=== PATIENT | male | born 1945 | race Caucasian/White ===

== ENCOUNTER 2018-01-27 18:35 | Inpatient (IN) | payer MEDICARE, BC ==
[~2018-01-27] VITALS: Ht 172.7 cm; Wt 70.0 kg
[~2018-01-27 18:35] MED LIST: ACET325T14 PO; BISA10SU65 PR; DOCU-131 PO; ENOX40SY4 SQ; LORA-446; ONDA4TAB13 PO; PANT40TA5 PO
[2018-01-27] MEDS ORDERED: ATENOLOL (18:51)
[2018-01-27] MEDS ORDERED: METOPROLOL 1 MG/ML, 5ML ONE ×3 (18:55→19:16)
[2018-01-27] MEDS: METOPROLOL 1 MG/ML, 5ML IVPush PRN ×3 (19:00→19:19)
[2018-01-27] MEDS ORDERED: SODIUM CHLORIDE 0.9% 1,000ML IVBOLUS ONE (19:00)
[2018-01-27 19:09] LABS: BASOPHILS # (AUTO) 0.06 x10^3/uL (0-0.1); BASOPHILS % (AUTO) 1 % (0-1); EOSINOPHILS # (AUTO) 0.04 x10^3/uL (0-0.4); EOSINOPHILS % (AUTO) 1 % (1-7); LYMPHOCYTES % (AUTO) 18 % (22-44); MD NO; MEAN CORPUSCULAR HEMOGLOBIN 35.9 pg (27.5-34.5); MEAN CORPUSCULAR HGB CONC 34.1 g/dL (33.2-36.2); MEAN CORPUSCULAR VOLUME 105.1 fL (81-97); MEAN PLATELET VOLUME 7.5 fL (7.4-10.4); MONOCYTES # (AUTO) 0.54 x10^3/uL (0.2-0.8); MONOCYTES % (AUTO) 9 % (2-9); NEUTROPHILS # (AUTO) 4.45 x10^3/uL (1.8-6.8); NEUTROPHILS % (AUTO) 72 % (42-75); PLATELET COUNT 327 x10^3/uL (130-400); RED BLOOD COUNT 4.29 x10^6/uL (4.38-5.82); RED CELL DISTRIBUTION WIDTH 13.3 % (9.4-14.8)
[2018-01-27 19:19] LABS: ALANINE AMINOTRANSFERASE 74 U/L (12-78); ALBUMIN 3.5 g/dL (3.4-5.0); ANION GAP 15 mmol/L (5-15); CALCIUM 8.9 mg/dL (8.5-10.1); CHLORIDE 98 mmol/L (98-107); CREATININE 2.15 mg/dL (0.7-1.3)
[2018-01-27 19:21] LABS: ALKALINE PHOSPHATASE 105 U/L (45-117); BILIRUBIN,TOTAL 0.9 mg/dL (0.2-1.0); TOTAL PROTEIN 8.9 g/dL (6.4-8.2)
[2018-01-27 19:51] LABS: TROPONIN I 0.068 ng/mL (0.000-0.045)
[2018-01-27] MEDS ORDERED: SODIUM CHLORIDE 0.9% 1,000 ML IV ONE (20:27)
[2018-01-27] MEDS ORDERED: ONDANSETRON 2MG/ML, 2ML IVPush PRN (20:30)
[2018-01-27 20:41] LABS: MICROSCOPIC NOT IND
[2018-01-27 20:45] LABS: CULTURE INDICATED? NO
[2018-01-27] MEDS ORDERED: ONDANSETRON ODT 4 MG PO PRN (21:00)
[2018-01-27] MEDS ORDERED: BISACODYL 10 MG SUPP PR PRN (21:00)
[2018-01-27] MEDS ORDERED: POLYETHYLENE GLYCOL 17 GM PACKET PO PRN (21:00)
[2018-01-27 21:44] LABS: FOLATE LEVEL 8.9 ng/mL (3.1-17.5); FREE T4 (FREE THYROXINE) 1.64 ng/dL (0.76-1.46); THYROID STIMULATING HORMONE 1.81 mIU/L (0.358-3.740)
[2018-01-27] MEDS ORDERED: POTASSIUM CHLORIDE 20 MEQ, MAGNESIUM SULFATE 2 GM, THIAMINE 200 MG, MVI ADULT 10 ML, FO... IV SCH (22:00)
[2018-01-27] MEDS: SODIUM CHLORIDE 0.9% 1,000 ML IV SCH (22:25)
[2018-01-27] MEDS: METOPROLOL TARTRATE 25 MG TABLET PO SCH (22:27)
[2018-01-27] MEDS: SUCRALFATE 1 GM/10 ML UDC PO SCH (22:27)
[2018-01-27] MEDS: FAMOTIDINE 20 MG TABLET PO SCH (22:27)
[2018-01-27] MEDS: HEPARIN 5,000 UNITS/ML, 1ML SQ SCH (22:27)
[2018-01-27] MEDS: NICOTINE 14MG/24 HR PATCH.TD24 TD SCH (22:28)
[2018-01-27 22:38] VITALS: BP 166/97
[2018-01-28 00:04] VITALS: BP 157/90
[2018-01-28 00:46] LABS: TROPONIN I 0.092 ng/mL (0.000-0.045)
[2018-01-28] MEDS ORDERED: LORazepam 1MG TABLET PO PRN ×4 (01:00→08:30)
[2018-01-28] MEDS ORDERED: DIPHENHYDRAMINE 25 MG CAPSULE PO ONE (01:00)
[2018-01-28] MEDS: ACETAMINOPHEN 325 MG TABLET PO PRN ×4 (03:07→21:52)
[2018-01-28] MEDS: METOPROLOL TARTRATE 25 MG TABLET PO SCH ×2 (06:10→17:09)
[2018-01-28] MEDS: HEPARIN 5,000 UNITS/ML, 1ML SQ SCH ×3 (06:10→20:59)
[2018-01-28 06:40] LABS: BASOPHILS # (AUTO) 0.02 x10^3/uL (0-0.1); BASOPHILS % (AUTO) 1 % (0-1); EOSINOPHILS # (AUTO) 0.18 x10^3/uL (0-0.4); EOSINOPHILS % (AUTO) 4 % (1-7); LYMPHOCYTES # (AUTO) 1.42 x10^3/uL (1-3.4); LYMPHOCYTES % (AUTO) 33 % (22-44); MD NO; MEAN CORPUSCULAR HGB CONC 33.7 g/dL (33.2-36.2); MEAN CORPUSCULAR VOLUME 103.9 fL (81-97); MEAN PLATELET VOLUME 7.3 fL (7.4-10.4); MONOCYTES # (AUTO) 0.63 x10^3/uL (0.2-0.8); MONOCYTES % (AUTO) 15 % (2-9); NEUTROPHILS # (AUTO) 2.02 x10^3/uL (1.8-6.8); NEUTROPHILS % (AUTO) 47 % (42-75); PLATELET COUNT 255 x10^3/uL (130-400); RED BLOOD COUNT 3.54 x10^6/uL (4.38-5.82); RED CELL DISTRIBUTION WIDTH 13.4 % (9.4-14.8)
[2018-01-28 06:49] LABS: ALANINE AMINOTRANSFERASE 50 U/L (12-78); ALBUMIN 2.9 g/dL (3.4-5.0); ANION GAP 10 mmol/L (5-15); CALCIUM 8.1 mg/dL (8.5-10.1); CHLORIDE 105 mmol/L (98-107); CREATININE 1.49 mg/dL (0.7-1.3)
[2018-01-28 06:54] LABS: ALKALINE PHOSPHATASE 81 U/L (45-117); TROPONIN I 0.065 ng/mL (0.000-0.045)
[2018-01-28 07:32] VITALS: BP 97/58
[2018-01-28] MEDS: FAMOTIDINE 20 MG TABLET PO SCH ×2 (08:15→20:59)
[2018-01-28] MEDS: SUCRALFATE 1 GM/10 ML UDC PO SCH (08:15)
[2018-01-28] MEDS: SENNA/DOCUSATE TABLET PO SCH (08:16)
[2018-01-28] MEDS: SODIUM CHLORIDE 0.9% 1,000 ML IV SCH (08:16)
[2018-01-28] MEDS ORDERED: GLYCERIN ADULT SUPP PR PRN (08:30)
[2018-01-28] MEDS ORDERED: MAGNESIUM CITRATE 300ML ORAL SOL PO PRN (08:30)
[2018-01-28] MEDS ORDERED: THIAMINE 100MG TABLET PO ONE (09:00)
[2018-01-28] MEDS: MAALOX/HYOSCYAMINE/LIDOCAINE 45 ML BTL PO SCH ×2 (09:00→13:30)
[2018-01-28] MEDS: LACTATED RINGERS 1,000 ML IV SCH ×2 (10:52→17:09)
[2018-01-28] MEDS: MULTIVITAMIN 1 TABLET PO SCH (11:29)
[2018-01-28] MEDS: FOLIC ACID 1 MG TABLET PO SCH (11:29)
[2018-01-28 14:20] VITALS: BP 132/80
[2018-01-28] MEDS: LORazepam 0.5MG TABLET PO PRN (18:43)
[2018-01-28 18:52] VITALS: BP 121/73
[2018-01-28] MEDS: NICOTINE 14MG/24 HR PATCH.TD24 TD SCH (20:59)
[2018-01-28] MEDS: LORazepam 1MG TABLET PO PRN (21:52)
[2018-01-29] MEDS: MAALOX/HYOSCYAMINE/LIDOCAINE 45 ML BTL PO SCH ×3 (01:30→20:39)
[2018-01-29 01:40] VITALS: BP 155/77
[2018-01-29] MEDS: LACTATED RINGERS 1,000 ML IV SCH ×3 (02:08→18:00)
[2018-01-29] MEDS: HEPARIN 5,000 UNITS/ML, 1ML SQ SCH ×3 (06:01→20:38)
[2018-01-29] MEDS: METOPROLOL TARTRATE 25 MG TABLET PO SCH ×2 (06:02→18:00)
[2018-01-29] MEDS: ACETAMINOPHEN 325 MG TABLET PO PRN ×3 (06:13→20:50)
[2018-01-29 06:55] VITALS: BP 175/116
[2018-01-29] MEDS: SIMETHICONE 125 MG CHEW TAB PO SCH ×4 (07:00→20:38)
[2018-01-29] MEDS ORDERED: REGADENOSON 0.4 MG/5 ML SYRINGE ONE (08:09)
[2018-01-29] MEDS: FAMOTIDINE 20 MG TABLET PO SCH ×2 (08:36→20:38)
[2018-01-29] MEDS: LORazepam 1MG TABLET PO PRN (08:45)
[2018-01-29] MEDS: SENNA/DOCUSATE TABLET PO SCH (09:00)
[2018-01-29] MEDS: MULTIVITAMIN 1 TABLET PO SCH (11:16)
[2018-01-29] MEDS: FOLIC ACID 1 MG TABLET PO SCH (11:16)
[2018-01-29 11:30] VITALS: BP 168/94
[2018-01-29 14:02] VITALS: BP 151/83
[2018-01-29 18:50] VITALS: BP 163/84
[2018-01-29] MEDS: NICOTINE 14MG/24 HR PATCH.TD24 TD SCH (20:39)
[2018-01-30] MEDS: LACTATED RINGERS 1,000 ML IV SCH ×3 (00:55→14:00)
[2018-01-30] MEDS: LORazepam 0.5MG TABLET PO PRN (00:55)
[2018-01-30 01:12] VITALS: BP 186/93
[2018-01-30] MEDS ORDERED: hydrALAzine 20 MG/ML, 1ML ONE (02:30)
[2018-01-30] MEDS: ACETAMINOPHEN 325 MG TABLET PO PRN ×2 (02:33→12:13)
[2018-01-30 05:20] VITALS: BP 149/76
[2018-01-30] MEDS: HEPARIN 5,000 UNITS/ML, 1ML SQ SCH ×2 (05:21→14:19)
[2018-01-30] MEDS ORDERED: hydrALAzine 20 MG/ML, 1ML IV PRN (06:00)
[2018-01-30] MEDS ORDERED: METOPROLOL TARTRATE 50 MG TABLET PO SCH (06:00)
[2018-01-30 06:39] VITALS: BP 146/73
[2018-01-30] MEDS ORDERED: ASPIRIN 81 MG TABLET EC PO SCH (08:00)
[2018-01-30] MEDS: FOLIC ACID 1 MG TABLET PO SCH (09:00)
[2018-01-30] MEDS: MULTIVITAMIN 1 TABLET PO SCH (09:00)
[2018-01-30] MEDS: FAMOTIDINE 20 MG TABLET PO SCH (09:00)
[2018-01-30] MEDS: MAALOX/HYOSCYAMINE/LIDOCAINE 45 ML BTL PO SCH (09:01)
[2018-01-30] MEDS: SIMETHICONE 125 MG CHEW TAB PO SCH ×2 (09:01→11:37)
[2018-01-30] MEDS: SENNA/DOCUSATE TABLET PO SCH (09:01)
[2018-01-30 12:00] VITALS: BP 151/81
[2018-01-30] MEDS ORDERED: POLY17PO5 PO (13:56)
[2018-01-30] MEDS ORDERED: FAMO20TA7 PO (13:56)
[2018-01-30] MEDS ORDERED: ASPI-621 PO (13:56)
[2018-01-30] MEDS ORDERED: ATOR20TA9 PO (13:56)
[2018-01-30] MEDS ORDERED: MULT1TAB60 PO (13:56)
[2018-01-30] MEDS ORDERED: FOLI-17 PO (13:56)
[2018-01-30] MEDS ORDERED: SUCR1TAB33 PO (13:56)
[2018-01-30] MEDS ORDERED: SIME125T10 PO (13:56)
[2018-01-30] MEDS ORDERED: SENN1TAB7 PO (13:56)
[2018-01-30] MEDS ORDERED: POLYETHYLENE GLYCOL 17 GM PACKET PO ONE (14:00)
[2018-01-30] MEDS ORDERED: METO50TA82 PO (14:36)
[2018-01-30] MEDS ORDERED: SUCRALFATE 1 GM TABLET PO SCH (16:00)
[2018-01-30] MEDS ORDERED: ATORVASTATIN 20 MG TABLET PO SCH (21:00)
== END 2018-01-30 15:36 | disposition home or self-care (01) | DRG 896 ==
LOC: ED 19:56 → EDIP 20:27 → 5SO 21:41 → DCLOUNGE 01-30 15:22
PROVIDERS: ADMIT Hospitalist; ATTEND Hospitalist
DX: F10.220 Alcohol dependence with intoxication, uncomplicated (principal); N17.0 Acute kidney failure with tubular necrosis; E87.2 Acidosis; D68.69 Other thrombophilia; E87.5 Hyperkalemia; I38 Endocarditis, valve unspecified; E87.1 Hypo-osmolality and hyponatremia; I48.92 Unspecified atrial flutter; D75.89 Other specified diseases of blood and blood-forming organs; I10 Essential (primary) hypertension; F17.210 Nicotine dependence, cigarettes, uncomplicated; I48.91 Unspecified atrial fibrillation; Z59.0 Homelessness; Z91.14 Patient's other noncompliance with medication regimen; Z79.899 Other long term (current) drug therapy; Z90.49 Acquired absence of other specified parts of digestive tract; Z88.6 Allergy status to analgesic agent; I25.89 Other forms of chronic ischemic heart disease
CPT/HCPCS: 36415; 78452; 80053; 80307; 81003; 82607; 82746; 83690; 83735; 84132; 84439; 84443; 84484; 85025; 93005; 93017; 96361; 96374; J1644; J2785; J3411; J3475; J3480; J7042; A9502; C9898; J0360; J7030; J7120; Q0163

== ENCOUNTER 2018-01-31 03:47 | Emergency (ER) | payer MEDICARE, BC ==
[~2018-01-31] VITALS: Ht 180.3 cm; Wt 65.0 kg
[~2018-01-31 03:47] MED LIST changes: +ASPI-621 PO; +ATENOLOL; +ATOR20TA9 PO; +FAMO20TA7 PO; +FOLI-17 PO; +METO50TA82 PO; +MULT1TAB60 PO; +POLY17PO5 PO; +SENN1TAB7 PO; +SIME125T10 PO; +SUCR1TAB33 PO
[2018-01-31] MEDS ORDERED: METOPROLOL TARTRATE 50 MG TABLET ONE (04:14)
[2018-01-31] MEDS ORDERED: METOPROLOL TARTRATE 50 MG TABLET PO ONE (04:30)
[2018-01-31 05:02] VITALS: BP 173/74
== END 2018-01-31 05:48 | disposition home or self-care (01) ==
LOC: ED 04:28
DX: F10.229 Alcohol dependence with intoxication, unspecified (principal); E87.1 Hypo-osmolality and hyponatremia; E87.5 Hyperkalemia; I48.92 Unspecified atrial flutter; I25.2 Old myocardial infarction; N19 Unspecified kidney failure; I10 Essential (primary) hypertension; F17.200 Nicotine dependence, unspecified, uncomplicated; Z72.89 Other problems related to lifestyle; Z91.14 Patient's other noncompliance with medication regimen; Z60.9 Problem related to social environment, unspecified; Z88.5 Allergy status to narcotic agent
CPT/HCPCS: 74022; 93005; 99284

== ENCOUNTER 2018-01-31 22:28 | Emergency (ER) | payer MEDICARE, BC ==
[~2018-01-31] VITALS: Ht 182.9 cm; Wt 65.0 kg
[2018-01-31] MEDS ORDERED: SODIUM CHLORIDE FLUSH 10ML SYR IVF ONE (23:00)
[2018-01-31] MEDS ORDERED: SODIUM CHLORIDE 0.9% 1,000ML IVBOLUS ONE (23:00)
[2018-01-31] MEDS ORDERED: METOPROLOL 1 MG/ML, 5ML ONE ×2 (23:09)
[2018-01-31] MEDS: METOPROLOL 1 MG/ML, 5ML IVPush PRN ×3 (23:24→23:35)
[2018-01-31 23:44] LABS: BASOPHILS # (AUTO) 0.04 x10^3/uL (0-0.1); BASOPHILS % (AUTO) 1 % (0-1); EOSINOPHILS # (AUTO) 0.27 x10^3/uL (0-0.4); EOSINOPHILS % (AUTO) 4 % (1-7); LYMPHOCYTES # (AUTO) 1.69 x10^3/uL (1-3.4); LYMPHOCYTES % (AUTO) 27 % (22-44); MD NO; MEAN CORPUSCULAR HEMOGLOBIN 35.8 pg (27.5-34.5); MEAN CORPUSCULAR HGB CONC 34.2 g/dL (33.2-36.2); MEAN CORPUSCULAR VOLUME 104.8 fL (81-97); MEAN PLATELET VOLUME 7.5 fL (7.4-10.4); MONOCYTES % (AUTO) 6 % (2-9); NEUTROPHILS # (AUTO) 3.89 x10^3/uL (1.8-6.8); NEUTROPHILS % (AUTO) 62 % (42-75); PLATELET COUNT 223 x10^3/uL (130-400); RED BLOOD COUNT 4.41 x10^6/uL (4.38-5.82); RED CELL DISTRIBUTION WIDTH 13.5 % (9.4-14.8)
[2018-01-31] MEDS ORDERED: DIGOXIN 0.25 MG/ML, 2ML ONE (23:45)
[2018-01-31 23:55] LABS: ALANINE AMINOTRANSFERASE 43 U/L (12-78); ALBUMIN 3.4 g/dL (3.4-5.0); ANION GAP 16 mmol/L (5-15); CALCIUM 8.5 mg/dL (8.5-10.1); CHLORIDE 97 mmol/L (98-107); CREATININE 0.95 mg/dL (0.7-1.3); INTERNATIONAL NORMALIZED RATIO 1.1 (0.93-1.1); PROTHROMBIN TIME 11.3 Seconds (9.6-11.5)
[2018-02-01] LABS: ALKALINE PHOSPHATASE 92 U/L (45-117); BILIRUBIN,TOTAL 0.7 mg/dL (0.2-1.0); TOTAL PROTEIN 8.5 g/dL (6.4-8.2); TROPONIN I 0.046 ng/mL (0.000-0.045)
[2018-02-01] MEDS ORDERED: DIGOXIN 0.25 MG/ML, 2ML IVPush ONE
[2018-02-01] MEDS ORDERED: PROPOFOL 10 MG/ML, 20ML ONE (00:53)
[2018-02-01] MEDS ORDERED: PROPOFOL 10 MG/ML, 20ML IVPush ONE (01:00)
[2018-02-01 04:12] VITALS: BP 147/75
== END 2018-02-01 04:19 | disposition home or self-care (01) ==
LOC: ED 23:38
DX: I48.92 Unspecified atrial flutter (principal); E87.2 Acidosis; I10 Essential (primary) hypertension; I21.4 Non-ST elevation (NSTEMI) myocardial infarction; N17.9 Acute kidney failure, unspecified; F10.20 Alcohol dependence, uncomplicated; I25.2 Old myocardial infarction; Z88.5 Allergy status to narcotic agent; Z91.14 Patient's other noncompliance with medication regimen; Z90.49 Acquired absence of other specified parts of digestive tract
CPT/HCPCS: 36415; 71045; 80053; 83880; 84484; 85025; 85610; 85730; 92960; 93005; 96361; 96374; 96375; 96376; 99152; 99291; J1160; J2704; J7030

== ENCOUNTER 2018-02-03 22:20 | Emergency (ER) | payer MEDICARE, BC ==
[~2018-02-03] VITALS: Ht 180.3 cm; Wt 65.0 kg
[2018-02-03 22:49] LABS: BASOPHILS # (AUTO) 0.04 x10^3/uL (0-0.1); BASOPHILS % (AUTO) 1 % (0-1); EOSINOPHILS # (AUTO) 0.11 x10^3/uL (0-0.4); EOSINOPHILS % (AUTO) 2 % (1-7); LYMPHOCYTES # (AUTO) 1.28 x10^3/uL (1-3.4); LYMPHOCYTES % (AUTO) 23 % (22-44); MD NO; MEAN CORPUSCULAR HGB CONC 33.9 g/dL (33.2-36.2); MEAN CORPUSCULAR VOLUME 103.2 fL (81-97); MEAN PLATELET VOLUME 7.1 fL (7.4-10.4); MONOCYTES # (AUTO) 1.03 x10^3/uL (0.2-0.8); MONOCYTES % (AUTO) 19 % (2-9); NEUTROPHILS # (AUTO) 2.99 x10^3/uL (1.8-6.8); NEUTROPHILS % (AUTO) 55 % (42-75); PLATELET COUNT 255 x10^3/uL (130-400); RED BLOOD COUNT 3.64 x10^6/uL (4.38-5.82); RED CELL DISTRIBUTION WIDTH 13.8 % (9.4-14.8)
[2018-02-03 22:56] LABS: ALBUMIN 3.1 g/dL (3.4-5.0); ANION GAP 11 mmol/L (5-15); CALCIUM 8.3 mg/dL (8.5-10.1); CHLORIDE 101 mmol/L (98-107); CREATININE 1.18 mg/dL (0.7-1.3)
[2018-02-04 02:00] VITALS: BP 128/73
[2018-02-04] MEDS ORDERED: BACITRACIN ZINC OINT 500U/GM, 0.9 GM ONE (03:19)
[2018-02-04] MEDS ORDERED: NALOXONE 0.4 MG/ML, 1ML ONE (03:22)
[2018-02-04] MEDS ORDERED: NALOXONE 1 MG/ML, 2ML ONE (03:22)
== END 2018-02-04 04:35 | disposition home or self-care (01) ==
LOC: ED 22:39
DX: M79.605 Pain in left leg (principal); F10.221 Alcohol dependence with intoxication delirium; G93.41 Metabolic encephalopathy; I25.2 Old myocardial infarction; I10 Essential (primary) hypertension; Z90.49 Acquired absence of other specified parts of digestive tract; Z72.89 Other problems related to lifestyle; Z60.9 Problem related to social environment, unspecified; Z91.14 Patient's other noncompliance with medication regimen
CPT/HCPCS: 36415; 80048; 80307; 82040; 85025; 99284